=== PATIENT | female | born 1940 | race Caucasian/White ===

== ENCOUNTER 2017-06-18 13:19 | Emergency (ER) | payer OTHER ==
--- NOTE | 2017-06-18 14:45 | EDPHY ---
General Time Seen by Provider: 06/18/17 14:36 Narrative: CHIEF COMPLAINT: Sore throat, left toe pain, cough HISTORY OF PRESENT ILLNESS: Patient presents with one-week history sore throat, cough and 2 days history of left great toe pain. Sore throat started on Monday. It was mild at 1st. Now moderate to severe. She was seen at an urgent Care earlier this week with reportedly negative rapid strep test. She has been taking minimal medications with no improvement. She now has left great toe redness, warmth and pain. She has had this once in the past and a finger but no formal diagnosis of gout. She has no chest pain. She has a nonproductive cough that is worse at night. Questionable fever. No headache. No neck pain or stiffness. No abdominal pain. No shortness of breath. No other associated complaints or modifying factors. REVIEW OF SYSTEMS: Ten systems reviewed and are negative unless otherwise noted in the HPI PCP: In [facility] SPECIALISTS: None locally PAST MEDICAL HISTORY: Type 2 diabetes, hypertension, dyslipidemia, TIA PAST SURGICAL HISTORY: No recent surgical SOCIAL HISTORY: Traveling from [facility]. Returns home on Monday FAMILY HISTORY: Noncontributory EXAMINATION General Appearance: Alert, no distress Head: normocephalic, atraumatic Eyes: Pupils equal and round, no conjunctival pallor or injection ENT, Mouth: Mucous membranes moist. Uvula is midline. There is mild postnasal drip with minimal erythema. No exudates. No asymmetry of the pharynx. No abnormality of the floor of the mouth. Minimal anterior cervical lymphadenopathy. Airway widely patent. Neck: Normal inspection, supple, non-tender. No meningeal signs. Respiratory: Lungs are clear to auscultation Cardiovascular: Regular rate and rhythm Gastrointestinal: Abdomen is soft and nontender Back: non-tender, no bony abnormalities Neurological: A&O, nonfocal, normal gait Skin: Warm and dry, no rash. Mild erythema of the left great toe MTP joint. Extremities: Minimal tenderness of the left MTP great toe. No crepitus. No deformity. No evidence of septic joint. There is no cellulitis of the foot, ankle or leg. No evidence of DVT. Psychiatric: Mood and affect normal DIFFERENTIAL DIAGNOSES: Including but not limited to viral pharyngitis, strep pharyngitis, upper respiratory infection, bronchitis, pneumonia, influenza, gout, septic joint, DVT MDM: 2:55 p.m. Acute pharyngitis, bronchitis and left lower extremity metatarsalgia that is likely is in etiology. Vital signs are within normal limits. She is in no acute distress. She has had symptoms for nearly a week and is traveling to [facility] in 2 days, thus I will start her on Zithromax for possible bacterial pharyngeal infection. I do not feel she has DVT or any evidence of septic joint. Her vital signs are within normal limits. She is in no acute distress. I do not feel she warrants a chest x-ray as I will be treating her with Zithromax, and her lungs are clear in all montero. First dose of medications given here. Discharged home with short course of Decadron with strict blood glucose monitoring precautions. We discussed ED precautions and I would like him to return here if she has no significant proven by tomorrow evening. She is comfortable this plan and discharged home stable condition. SUPERVISION: This patient was independently evaluated without direct involvement of or examination by the attending physician. - History Smoking Status: Former smoker - Objective Vital Signs: Initial Vital Signs Temperature (C) 98.2 F 06/18/17 13:32 Heart Rate 88 06/18/17 13:32 Respiratory Rate 17 06/18/17 13:32 Blood Pressure 122/65 H 06/18/17 13:32 O2 Sat (%) 94 06/18/17 13:32 O2 Delivery Mode Room Air Allergies/Adverse Reactions: No Known Allergies Allergy (Unverified 06/18/17 13:30) Home Medications: Medication Instructions Recorded Amlodipine Besylate 06/18/17 Azithromycin [Zithromax] 250 mg PO DAILY #4 tab 06/18/17 Benzonatate [Tessalon Pearles (RX)] 100 mg PO Q8 PRN #15 cap 06/18/17 Canosartan 06/18/17 Colchicine [Colcrys] 0.6 mg PO ONCE #1 tablet 06/18/17 Dexamethasone [Decadron 4 MG (*)] 4 mg PO AD #4 tab 06/18/17 Enalapril Maleate 06/18/17 Lasix 06/18/17 Metformin HCl 06/18/17 Metoprolol Succinate 06/18/17 Salicylic Acid 06/18/17 Medications Given: Discontinued Medications Azithromycin (Zithromax) 500 mg PO EDNOW ONE PRN Reason: Protocol Stop: 06/18/17 14:55 Last Admin: 06/18/17 15:04 Dose: 500 mg Benzonatate (Tessalon Pearles) 100 mg PO EDNOW ONE Stop: 06/18/17 14:55 Last Admin: 06/18/17 15:02 Dose: 100 mg Colchicine (Colchicine) 1.2 mg PO EDNOW ONE Stop: 06/18/17 14:55 Last Admin: 06/18/17 15:02 Dose: 1.2 mg Dexamethasone (Decadron) 8 mg PO EDNOW ONE Stop: 06/18/17 14:55 Last Admin: 06/18/17 15:03 Dose: 8 mg Departure - Departure Disposition: Home, Routine, Self-Care Clinical Impression: Pain of left great toe Acute pharyngitis Qualifiers: Pharyngitis/tonsillitis etiology: unspecified etiology Qualified Code(s): J02.9 - Acute pharyngitis, unspecified Acute bronchitis Qualifiers: Bronchitis organism: unspecified organism Qualified Code(s): J20.9 - Acute bronchitis, unspecified Condition: Good Instructions: Benzonatate (By mouth), Azithromycin (By mouth), Colchicine (By mouth), Dexamethasone (By mouth), Pharyngitis (ED), Gout (ED), Acute Bronchitis (ED) Additional Instructions: 1. Decadron as prescribed to completion. You will need to monitor blood sugar closely with this 2. Zithromax as prescribed to completion. Her 1st dose was today. Her next dose will be due tomorrow 3. Colchicine 1 dose this evening with dinner as prescribed 4. Return here for any worsening symptoms, chest pain, fever, increasing redness of the left foot 5. Contact your physician and [place] to discussed the possibility of taking ibuprofen. I would recommend 400 mg every 6-8 hours as needed for the pain left foot 6. Tessalon Perles as prescribed as needed for cough Referrals: Physician,Emergency Dept, MD [Medical Doctor] - As per Instructions Prescriptions: Azithromycin [Zithromax] 250 mg PO DAILY #4 tab Benzonatate [Tessalon Pearles (RX)] 100 mg PO Q8 PRN #15 cap PRN Reason: Cough, Mild Colchicine [Colcrys] 0.6 mg PO ONCE #1 tablet Dexamethasone [Decadron 4 MG (*)] 4 mg PO AD #4 tab
[2017-06-18] MEDS ORDERED: DEXAMETHASONE 4 MG TAB PO ONE (14:54)
[2017-06-18] MEDS ORDERED: AZITHROMYCIN 250 MG TAB PO ONE (14:54)
[2017-06-18] MEDS ORDERED: BENZONATATE 100 MG CAP PO ONE (14:54)
[2017-06-18] MEDS ORDERED: COLCHICINE 0.6 MG CAP/TAB PO ONE (14:54)
[2017-06-18 15:52] VITALS: BP 125/78
== END 2017-06-18 15:53 | disposition home or self-care (01) ==
DX: J02.9 Acute pharyngitis, unspecified (principal); J20.9 Acute bronchitis, unspecified; M79.675 Pain in left toe(s); E11.9 Type 2 diabetes mellitus without complications; I10 Essential (primary) hypertension; Z79.84 Long term (current) use of oral hypoglycemic drugs; Z87.891 Personal history of nicotine dependence